=== PATIENT | female | born 1940 | race Caucasian/White ===

== ENCOUNTER 2016-09-11 14:44 | Emergency (ER) | payer MEDICARE ==
[~2016-09-11] VITALS: Ht 157.5 cm; Wt 69.0 kg
[~2016-09-11 14:44] MED LIST: MECL25TA4 PO
[2016-09-11 14:45] VITALS: BP 148/86
== END 2016-09-11 16:01 | disposition home or self-care (01) ==
LOC: ED 15:42
DX: L20.84 Intrinsic (allergic) eczema (principal)
CPT/HCPCS: 99281